=== PATIENT | female | born 1950 | race Caucasian/White ===

== ENCOUNTER 2021-08-29 15:16 | Inpatient (IN) | payer OTHER, MEDICARE ==
[~2021-08-29] VITALS: Ht 149.9 cm; Wt 77.2 kg
[2021-08-29 15:30] VITALS: BP_SYST 148
[2021-08-29 17:04] LABS: ANION GAP 4 (5-15); CALCIUM 8.2 mg/dL (8.4-11.0); CHLORIDE 92 mmol/L (98-107); CREATININE 1.17 mg/dL (0.55-1.30); GLUCOSE 96 mg/dL (70-99); POTASSIUM 5.8 mmol/L (3.5-5.1); SODIUM SERUM 122 mmol/L (136-145); UREA NITROGEN, BLOOD 18 mg/dL (8-21)
[2021-08-29 17:09] LABS: INR 0.9 (0.8-1.2); PROTHROMBIN TIME 9.7 SECS (9.5-12.5)
[2021-08-29 17:13] LABS: ALANINE AMINOTRANSFERASE 57 U/L (12-78); ALBUMIN 2.9 g/dL (3.4-4.8); ASPARTATE AMINOTRANSFERASE 68 U/L (10-37); TOTAL BILIRUBIN 0.5 mg/dL (0.0-1.0)
[2021-08-29 17:14] LABS: BASOPHILS # (AUTO) 0.1 K/uL (0.0-0.2); BASOPHILS % (AUTO) 0.7 % (0.0-2.0); EOSINOPHILS # (AUTO) 0.4 K/uL (0.0-0.4); EOSINOPHILS % (AUTO) 2.9 % (0.0-4.0); HEMATOCRIT 32.2 % (36-48); HEMOGLOBIN 11.1 g/dL (12.0-16.0); LYMPHOCYTES # (AUTO) 0.9 K/uL (1.0-5.5); LYMPHOCYTES % (AUTO) 7.2 % (20.5-51.5); MEAN CORPUSCULAR HEMOGLOBIN 34 pg (27-31); MEAN CORPUSCULAR HGB CONC 34 % (32-36); MEAN CORPUSCULAR VOLUME 99 fL (79.0-98.0); MONOCYTES % (AUTO) 7.3 % (1.7-9.3); NEUTROPHILS # (AUTO) 10.8 K/uL (1.8-7.7); NEUTROPHILS % (AUTO) 81.9 % (40.0-70.0); PLATELET COUNT (AUTO) 331 K/uL (130-430); RED BLOOD CELL COUNT(AUTO) 3.25 MIL/uL (4.2-6.2); WHITE BLOOD COUNT (AUTO) 13.2 K/uL (4.8-10.8)
[2021-08-29 17:15] LABS: GFR AFRICAN AMERICAN 59 mL/min (>90)
[2021-08-29] MEDS ORDERED: iohexoL 350 mgI/mL, 100 ML INFUS..BTL IV ONE (18:56)
[2021-08-29] MEDS ORDERED: ONDANSETRON HCL 4 MG/2 ML VIAL IVP PRN (21:30)
[2021-08-29] MEDS ORDERED: IPRATROPIUM/ALBUTEROL SULFATE 3 ML AMPUL.NEB (DUONEB) INH SCH (21:30)
[2021-08-29] MEDS ORDERED: IPRATROPIUM/ALBUTEROL SULFATE 3 ML AMPUL.NEB (DUONEB) INH PRN (21:30)
[2021-08-29] MEDS ORDERED: MONT-40 PO (22:04)
[2021-08-29] MEDS ORDERED: TRAZ150T77 PO (22:04)
[2021-08-29] MEDS ORDERED: [UNRECOGNIZED DRUG - CODE] IV (22:04)
[2021-08-29] MEDS ORDERED: HYDR-3921 PO (22:04)
[2021-08-29] MEDS ORDERED: RALO60TA PO (22:04)
[2021-08-29] MEDS ORDERED: BENZ100C92 PO (22:04)
[2021-08-29] MEDS ORDERED: LOSA100T3 PO (22:04)
[2021-08-29] MEDS ORDERED: ALBMDI INH (22:04)
[2021-08-29] MEDS ORDERED: METO-290 PO (22:04)
[2021-08-29] MEDS ORDERED: ARIP10TA9 PO (22:04)
[2021-08-29] MEDS ORDERED: METO2.5T6 PO ×2 (22:04)
[2021-08-29] MEDS ORDERED: NEU300 PO (22:04)
[2021-08-29] MEDS ORDERED: [UNRECOGNIZED DRUG - CODE] PO (22:04)
[2021-08-29] MEDS ORDERED: NARA2.5T PO (22:04)
[2021-08-29] MEDS ORDERED: DENO60DI INJ (22:04)
[2021-08-29] MEDS ORDERED: PRIM50TA27 PO (22:04)
[2021-08-29] MEDS ORDERED: DILT30TA36 PO (22:04)
[2021-08-29] MEDS ORDERED: DICL50TA9 PO (22:04)
[2021-08-29] MEDS ORDERED: FAMO40TA7 PO (22:04)
[2021-08-29] MEDS ORDERED: TOLT4CAP PO (22:04)
[2021-08-29] MEDS ORDERED: DIVA-74 PO (22:04)
[2021-08-29] MEDS ORDERED: FURO-150 PO (22:04)
[2021-08-29] MEDS ORDERED: FLUT1BLS5 IH (22:04)
[2021-08-29] MEDS ORDERED: ATOG60TA PO (22:04)
[2021-08-29] MEDS ORDERED: POTA-197 PO (22:04)
[2021-08-29] MEDS ORDERED: METH-634 PO (22:04)
[2021-08-29] MEDS ORDERED: PRO20 PO (22:04)
[2021-08-29] MEDS ORDERED: MIRT-115 PO (22:04)
[2021-08-29] MEDS ORDERED: LORA-259 PO (22:04)
[2021-08-29] MEDS ORDERED: LEVO125C2 PO (22:04)
[2021-08-29] MEDS ORDERED: LIALDA 1.2 GM PO (22:04)
[2021-08-29] MEDS ORDERED: ASPI-1393 PO (22:04)
[2021-08-29] MEDS ORDERED: NEBI5TAB3 PO (22:04)
[2021-08-29 22:50] VITALS: BP_SYST 145
[2021-08-30] MEDS: ACETAMINOPHEN 325 MG TABLET PO PRN ×2 (00:20→06:50)
[2021-08-30 04:41] VITALS: BP_SYST 145
[2021-08-30 07:49] LABS: BASOPHILS # (AUTO) 0.1 K/uL (0.0-0.2); BASOPHILS % (AUTO) 0.8 % (0.0-2.0); EOSINOPHILS # (AUTO) 0.5 K/uL (0.0-0.4); HEMATOCRIT 31.7 % (36-48); HEMOGLOBIN 11.1 g/dL (12.0-16.0); LYMPHOCYTES # (AUTO) 0.8 K/uL (1.0-5.5); LYMPHOCYTES % (AUTO) 6.7 % (20.5-51.5); MEAN CORPUSCULAR HEMOGLOBIN 35 pg (27-31); MEAN CORPUSCULAR HGB CONC 35 % (32-36); MEAN CORPUSCULAR VOLUME 99 fL (79.0-98.0); MONOCYTES # (AUTO) 1.1 K/uL (0.0-1.0); MONOCYTES % (AUTO) 8.7 % (1.7-9.3); NEUTROPHILS # (AUTO) 9.9 K/uL (1.8-7.7); NEUTROPHILS % (AUTO) 79.8 % (40.0-70.0); PLATELET COUNT (AUTO) 325 K/uL (130-430); RED BLOOD CELL COUNT(AUTO) 3.19 MIL/uL (4.2-6.2); WHITE BLOOD COUNT (AUTO) 12.4 K/uL (4.8-10.8)
[2021-08-30 08:24] LABS: ALBUMIN 2.6 g/dL (3.4-4.8); CALCIUM 8.2 mg/dL (8.4-11.0); CREATININE 1.01 mg/dL (0.55-1.30); POTASSIUM 4.2 mmol/L (3.5-5.1); TOTAL BILIRUBIN 0.4 mg/dL (0.0-1.0)
[2021-08-30] MEDS ORDERED: FAMOTIDINE 20 MG TABLET PO PRN (08:45)
[2021-08-30] MEDS ORDERED: FLUoxetine HCL 20 MG CAPSULE (PROzac) PO SCH (09:00)
[2021-08-30] MEDS ORDERED: NON-FORMULARY MEDICATION (Fluticasone/Umeclidin/Vilanter (Trelegy Ellipta 100-62.5-25) 1 P IH SCH (09:00)
[2021-08-30] MEDS: IPRATROPIUM/ALBUTEROL SULFATE 3 ML AMPUL.NEB (DUONEB) INH SCH ×3 (09:00→19:46)
[2021-08-30 12:00] VITALS: BP_SYST 138
[2021-08-30] MEDS: METOPROLOL SUCCINATE 50 MG TAB.SR.24H (TOPROL XL) PO SCH (13:45)
[2021-08-30] MEDS: GABAPENTIN 300 MG CAPSULE PO SCH ×2 (13:46→22:09)
[2021-08-30] MEDS: FUROSEMIDE 20 MG TABLET PO SCH (13:47)
[2021-08-30] MEDS: ASPIRIN 81 MG TABLET(ECOTRIN) PO SCH (13:48)
[2021-08-30 16:00] VITALS: BP_SYST 127
[2021-08-30] MEDS: MONTELUKAST 10 MG TABLET PO SCH (17:19)
[2021-08-30] MEDS: HYDROcodone/ACETAMIN 5-325 MG TAB (NORCO/ VICODIN) PO PRN (17:22)
[2021-08-30 20:00] VITALS: BP_SYST 145
[2021-08-30] MEDS ORDERED: traZODone HCL 50 MG TABLET (DESYREL) PO SCH (21:00)
[2021-08-30] MEDS: DIVALPROEX SODIUM 500 MG TABLET( DEPAKOTE) PO SCH (22:09)
[2021-08-31] MEDS: IPRATROPIUM/ALBUTEROL SULFATE 3 ML AMPUL.NEB (DUONEB) INH SCH ×4 (01:00→19:48)
[2021-08-31 07:23] LABS: BASOPHILS # (AUTO) 0.1 K/uL (0.0-0.2); BASOPHILS % (AUTO) 0.6 % (0.0-2.0); EOSINOPHILS # (AUTO) 0.4 K/uL (0.0-0.4); EOSINOPHILS % (AUTO) 3.7 % (0.0-4.0); HEMATOCRIT 28.7 % (36-48); HEMOGLOBIN 10.2 g/dL (12.0-16.0); LYMPHOCYTES # (AUTO) 1.2 K/uL (1.0-5.5); LYMPHOCYTES % (AUTO) 11.3 % (20.5-51.5); MEAN CORPUSCULAR HEMOGLOBIN 35 pg (27-31); MEAN CORPUSCULAR HGB CONC 36 % (32-36); MEAN CORPUSCULAR VOLUME 98 fL (79.0-98.0); MONOCYTES # (AUTO) 0.9 K/uL (0.0-1.0); MONOCYTES % (AUTO) 9.1 % (1.7-9.3); NEUTROPHILS # (AUTO) 7.9 K/uL (1.8-7.7); NEUTROPHILS % (AUTO) 75.3 % (40.0-70.0); PLATELET COUNT (AUTO) 303 K/uL (130-430); RED BLOOD CELL COUNT(AUTO) 2.92 MIL/uL (4.2-6.2); WHITE BLOOD COUNT (AUTO) 10.5 K/uL (4.8-10.8)
[2021-08-31 08:00] VITALS: BP_SYST 112
[2021-08-31 08:22] LABS: ALBUMIN 2.2 g/dL (3.4-4.8); CALCIUM 7.4 mg/dL (8.4-11.0); CREATININE 0.69 mg/dL (0.55-1.30); PHOSPHORUS 3.8 mg/dL (2.7-4.5); POTASSIUM 3.6 mmol/L (3.5-5.1); THYROID STIMULATING HORMONE 2.35 uIu/mL (0.36-3.74); TOTAL BILIRUBIN 0.3 mg/dL (0.0-1.0)
[2021-08-31 08:53] LABS: URIC ACID 4.5 mg/dL (2.4-7.0)
[2021-08-31] MEDS: ASPIRIN 81 MG TABLET(ECOTRIN) PO SCH (09:36)
[2021-08-31] MEDS: LEVOTHYROXINE SODIUM 0.125 MG TABLET PO SCH (09:36)
[2021-08-31] MEDS: GABAPENTIN 300 MG CAPSULE PO SCH ×2 (09:36→21:09)
[2021-08-31] MEDS: FUROSEMIDE 20 MG TABLET PO SCH (09:37)
[2021-08-31] MEDS: METOPROLOL SUCCINATE 50 MG TAB.SR.24H (TOPROL XL) PO SCH (09:38)
[2021-08-31] MEDS: HYDROcodone/ACETAMIN 5-325 MG TAB (NORCO/ VICODIN) PO PRN ×2 (10:00→18:15)
[2021-08-31 11:14] LABS: BILIRUBIN,URINE NEGATIVE (NEGATIVE); BLOOD, URINE NEGATIVE (NEGATIVE); CLARITY/URINE CLEAR (CLEAR); COLOR,URINE YELLOW (YELLOW); GLUCOSE,URINE NEGATIVE (NEGATIVE); KETONES,URINE TRACE (NEGATIVE); LEUKOCYTE ESTERASE ,URINE NEGATIVE (NEGATIVE); NITRITE, URINE NEGATIVE (NEGATIVE); PROTEIN URINE NEGATIVE (NEGATIVE); UROBILINOGEN,URINE 0.2 (0.2-1.0)
[2021-08-31 12:00] VITALS: BP_SYST 119
[2021-08-31] MEDS: MONTELUKAST 10 MG TABLET PO SCH (18:06)
[2021-08-31 21:00] VITALS: BP_SYST 131
[2021-08-31] MEDS: DIVALPROEX SODIUM 500 MG TABLET( DEPAKOTE) PO SCH (21:08)
[2021-08-31] MEDS ORDERED: MIRTAZAPINE 15 MG TABLET PO SCH (23:00)
[2021-09-01] VITALS: BP_SYST 125
[2021-09-01] MEDS: IPRATROPIUM/ALBUTEROL SULFATE 3 ML AMPUL.NEB (DUONEB) INH SCH ×3 (01:10→13:18)
[2021-09-01 06:43] LABS: CALCIUM 7.4 mg/dL (8.4-11.0); CREATININE 0.63 mg/dL (0.55-1.30); POTASSIUM 3.9 mmol/L (3.5-5.1)
[2021-09-01] MEDS: LEVOTHYROXINE SODIUM 0.125 MG TABLET PO SCH (07:03)
[2021-09-01 08:00] VITALS: BP_SYST 126
[2021-09-01] MEDS: ASPIRIN 81 MG TABLET(ECOTRIN) PO SCH (08:24)
[2021-09-01] MEDS: METOPROLOL SUCCINATE 50 MG TAB.SR.24H (TOPROL XL) PO SCH (08:24)
[2021-09-01] MEDS: GABAPENTIN 300 MG CAPSULE PO SCH (08:24)
[2021-09-01] MEDS: FUROSEMIDE 20 MG TABLET PO SCH (08:25)
[2021-09-01] MEDS: HYDROcodone/ACETAMIN 5-325 MG TAB (NORCO/ VICODIN) PO PRN (10:43)
[2021-09-01 13:12] VITALS: BP_SYST 134
[2021-09-01 15:12] VITALS: BP_SYST 134
[2021-09-01 16:27] VITALS: BP_SYST 131
[2021-09-01] MEDS: MONTELUKAST 10 MG TABLET PO SCH (17:37)
== END 2021-09-01 18:10 | disposition home health service (06) | DRG 189 ==
LOC: SED 15:16 → STU 21:28
PROVIDERS: ADMIT Family Medicine; ATTEND Family Medicine
DX: J96.00 Acute respiratory failure, unspecified whether with hypoxia or hypercapnia (principal); J18.9 Pneumonia, unspecified organism; E43 Unspecified severe protein-calorie malnutrition; E22.2 Syndrome of inappropriate secretion of antidiuretic hormone; J45.901 Unspecified asthma with (acute) exacerbation; J44.1 Chronic obstructive pulmonary disease with (acute) exacerbation; J44.0 Chronic obstructive pulmonary disease with (acute) lower respiratory infection; L03.115 Cellulitis of right lower limb; I11.0 Hypertensive heart disease with heart failure; E66.9 Obesity, unspecified; E66.01 Morbid (severe) obesity due to excess calories; F32.A Depression, unspecified; E03.9 Hypothyroidism, unspecified; I50.9 Heart failure, unspecified; C50.911 Malignant neoplasm of unspecified site of right female breast; G40.909 Epilepsy, unspecified, not intractable, without status epilepticus; G43.909 Migraine, unspecified, not intractable, without status migrainosus; G62.9 Polyneuropathy, unspecified; G89.4 Chronic pain syndrome; M16.11 Unilateral primary osteoarthritis, right hip; Z20.822 Contact with and (suspected) exposure to COVID-19; Z88.5 Allergy status to narcotic agent; Z88.0 Allergy status to penicillin; Z79.899 Other long term (current) drug therapy; Z79.82 Long term (current) use of aspirin; Z85.3 Personal history of malignant neoplasm of breast; Z92.21 Personal history of antineoplastic chemotherapy
CPT/HCPCS: 36415; 71045; 71275; 76376; 80048; 80053; 81003; 82043; 82570; 83735; 83880; 83930; 83935; 84100; 84302; 84443; 84484; 84550; 85025; 85379; 85610-TC; 85730-TC; 87040; 93005; 93306; 93970; 94640; 94760; 97110-GP; 97112-GP; 97116-GP; 99285; G0378; Q9967